=== PATIENT | male | born 1975 | race Caucasian/White ===

== ENCOUNTER 2020-11-07 08:08 | Emergency (ER) | payer BC ==
[2020-11-07 08:13] VITALS: RESP 18; TEMP 97.8
[2020-11-07] MEDS ORDERED: KETOROLAC 15 MG/ML 1 ML VIAL IVP STA (08:21)
[2020-11-07] MEDS ORDERED: DIAZEPAM 5 MG/ML 2 ML INJ IVP STA ×2 (08:21→09:59)
[2020-11-07] MEDS ORDERED: LIDOCAINE 5% PATCH TOPICAL STA (08:22)
--- NOTE | 2020-11-07 08:29 | ED ---
General Adult HPI - General Chief complaint: Back Pain/Injury Stated complaint: back pain Time Seen by Provider: 11/07/20 08:10 Source: patient, RN notes reviewed, old records reviewed Mode of arrival: ambulatory Limitations: physical limitation - History of Present Illness Initial comments: This is a 45-year-old male who presents emergency Department complaining of lower back pain. Patient states she was stretching on Thursday morning when he hurt his lower back he states he was on the right side but now it's on both sides. Patient denies any radiation of pain. Patient does any numbness or weakness per patient denies any urinary retention or incontinence. Patient states he has done this in the past as well per patient states he saw his [facility] doctor on Thursday he was given tramadol Flexeril and prednisone. Patient states he is no better. Patient denies any other complaints at this time. - Related Data Home Medications Medication Instructions Recorded Confirmed Cyclobenzaprine [Flexeril] 10 mg PO BID PRN 11/07/20 11/07/20 predniSONE [Deltasone] 40 mg PO BID 11/07/20 11/07/20 traMADol HCL [Ultram] 50 mg PO BID PRN 11/07/20 11/07/20 Previous Rx's Medication Instructions Recorded Ketorolac [Toradol] 10 mg PO Q6HR #15 tab 11/07/20 Lidocaine 5% Patch [Lidoderm 5% 2 patch TOPICAL DAILY #10 patch 11/07/20 Patch] Orphenadrine [Norflex] 100 mg PO Q12H #20 tab 11/07/20 Allergies Allergy/AdvReac Type Severity Reaction Status Date / Time No Known Allergies Allergy Verified 11/07/20 08:43 Review of Systems ROS Statement: Those systems with pertinent positive or pertinent negative responses have been documented in the HPI. ROS Other: All systems not noted in ROS Statement are negative. 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 History of Any Multi-Drug Resistant Organisms: None Reported Past Surgical History: Adenoidectomy, Tonsillectomy Past Anesthesia/Blood Transfusion Reactions: No Reported Reaction Past Psychological History: No Psychological Hx Reported Smoking Status: Never smoker Past Alcohol Use History: Occasional Past Drug Use History: None Reported - Past Family History Mother Additional Family Medical History / Comment(s): MOTHER-BRAIN TUMOR, BOTHER ANUERYSMS, AND STRONG FAMILY HX OF FACTOR LEIDEN PT THOUGHT IT TO BT THE HOMOZYGOUS TYPE General Exam - General Exam Comments Initial Comments: GENERAL: Patient is well-developed and well-nourished. Patient is nontoxic and well- hydrated and is in mild distress. ENT: Neck is soft and supple. No significant lymphadenopathy is noted. Oropharynx is clear. Moist mucous membranes. Neck has full range of motion without eliciting any pain. EYES: The sclera were anicteric and conjunctiva were pink and moist. Extraocular movements were intact and pupils were equal round and reactive to light. Eyelids were unremarkable. SKIN: Skin is clear with no lesions or rashes and otherwise unremarkable. NEUROLOGIC: Patient is alert and oriented x3. Cranial nerves II through XII are grossly intact. Motor and sensory are also intact. Normal speech, volume and content. Symmetrical smile. Straight leg test is negative bilaterally. Perineum exam has normal sensation. MUSCULOSKELETAL: Normal extremities with adequate strength and full range of motion. Patient has tenderness bilateral lower back in the paraspinous muscles tenderness. LYMPHATICS: No significant lymphadenopathy is noted PSYCHIATRIC: Normal psychiatric evaluation. Limitations: physical limitation Course Vital Signs 11/07/20 11/07/20 08:09 09:13 Temperature 97.8 F Pulse Rate 79 76 Respiratory 18 18 Rate Blood Pressure 141/87 162/92 O2 Sat by Pulse 98 99 Oximetry Medical Decision Making - Medical Decision Making Patient received Valium and Toradol emergency department. The sacral spine shows no acute abnormality. Disposition Clinical Impression: Strain of lumbar region Disposition: HOME SELF-CARE Condition: Good Instructions (If sedation given, give patient instructions): Low Back Strain (ED), Lower Back Exercises (ED) Additional Instructions: Patient should stop taking Flexeril stopped taking prednisone and continue taking tramadol as prescribed Prescriptions: Lidocaine 5% Patch [Lidoderm 5% Patch] 2 patch TOPICAL DAILY #10 patch Orphenadrine [Norflex] 100 mg PO Q12H #20 tab Ketorolac [Toradol] 10 mg PO Q6HR #15 tab Is patient prescribed a controlled substance at d/c from ED?: No Referrals: Robert Shell MD [Primary Care Provider] - 1-2 days Time of Disposition: 10:01
--- NOTE | 2020-11-07 09:52 | XR ---
EXAMINATION TYPE: XR lumbosacral spine min 4V DATE OF EXAM: 11/07/2020 COMPARISON: None HISTORY: Back pain and spasm TECHNIQUE: 5 view lumbar spine FINDINGS: There 5 lumbar-type vertebral bodies. Pedicles are intact. Disc heights are preserved. Vert ebral body heights are preserved. Alignment is normal. Facets appear normal. No spondylolytic defects are evident. IMPRESSION: 1. No acute osseous abnormality lumbar spine
[2020-11-07 10:26] VITALS: BP 126/74; PULSE 78
== END 2020-11-07 10:23 | disposition home or self-care (01) ==
LOC: EC 08:08
DX: S39.012A Strain of muscle, fascia and tendon of lower back, initial encounter (principal); X50.9XXA Other and unspecified overexertion or strenuous movements or postures, initial encounter
CPT/HCPCS: 72110; 99283; 96374; 96375; 96376; J3360; J1885

== ENCOUNTER 2020-11-08 19:59 | Emergency (ER) | payer BC ==
[2020-11-08 21:28] VITALS: RESP 18; TEMP 98.4
[2020-11-08] MEDS ORDERED: diphenhydrAMINE 50 MG/ML 1 ML VIAL IM STA (23:11)
[2020-11-08] MEDS ORDERED: HYDROmorphone 1 MG/ML 1 ML SYRINGE IM STA (23:11)
[2020-11-08] MEDS ORDERED: DIAZEPAM 5 MG/ML 2 ML INJ IM ONE (23:11)
[2020-11-09] MEDS ORDERED: HYDROmorphone 1 MG/ML 1 ML SYRINGE IM STA (00:56)
--- NOTE | 2020-11-09 00:58 | ED ---
Back Pain HPI - General Chief Complaint: Back Pain/Injury Stated Complaint: Back Pain Time Seen by Provider: 11/08/20 22:25 Source: patient - History of Present Illness Initial Comments: 45 year-old male patient presents to the emergency department for evaluation of lower back pain. Patient states that he was stretching 5 days ago, bending forward when his back spasmed. States it was over the left lower back. He did see his physician on Thursday and was diagnosed with spasm. Patient states that his pain spread and he got worse so he was seen in the ED yesterday. He was given toradol, norflex, ultram, and lidoderm patches. Patient states that since yesterday the tightness has spread to his hips and down the front of his thighs to his knees. He denies any numbness or tingling. Denies saddle anesthesia or loss of bowel or bladder control. Denies abdominal pain, nausea, vomiting, or diarrhea. Denies fever or chills. Denies history of similar back pain. Denies any fall or impact to the back. - Related Data Home Medications Medication Instructions Recorded Confirmed Cyclobenzaprine [Flexeril] 10 mg PO BID PRN 11/07/20 11/07/20 predniSONE [Deltasone] 40 mg PO BID 11/07/20 11/07/20 traMADol HCL [Ultram] 50 mg PO BID PRN 11/07/20 11/07/20 Previous Rx's Medication Instructions Recorded Ketorolac [Toradol] 10 mg PO Q6HR #15 tab 11/07/20 Lidocaine 5% Patch [Lidoderm 5% 2 patch TOPICAL DAILY #10 patch 11/07/20 Patch] Orphenadrine [Norflex] 100 mg PO Q12H #20 tab 11/07/20 Diazepam [Valium] 5 mg PO TID PRN 3 Days #9 tab 11/09/20 HYDROcodone/APAP 7.5-325MG [[place] 1 tab PO Q6HR PRN 3 Days #12 tab 11/09/20 7.5-325] Allergies Allergy/AdvReac Type Severity Reaction Status Date / Time No Known Allergies Allergy Verified 11/08/20 21:28 Review of Systems ROS Statement: Those systems with pertinent positive or pertinent negative responses have been documented in the HPI. ROS Other: All systems not noted in ROS Statement are negative. 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 History of Any Multi-Drug Resistant Organisms: None Reported Past Surgical History: Adenoidectomy, Tonsillectomy Past Anesthesia/Blood Transfusion Reactions: No Reported Reaction Past Psychological History: No Psychological Hx Reported Smoking Status: Never smoker Past Alcohol Use History: Occasional Past Drug Use History: None Reported - Past Family History Mother Additional Family Medical History / Comment(s): MOTHER-BRAIN TUMOR, BOTHER ANUERYSMS, AND STRONG FAMILY HX OF FACTOR LEIDEN PT THOUGHT IT TO BT THE HOMOZYGOUS TYPE General Exam General appearance: alert, in no apparent distress, other (This is a well- developed, well-nourished adult male patient in no acute distress. Vital signs upon presentation are temperature 98.4F, pulse 70, respirations 18, blood pressure 156/80, pulse ox 99% on room air.) Eye exam: Present: normal appearance, PERRL, EOMI. Absent: scleral icterus, conjunctival injection, periorbital swelling ENT exam: Present: normal exam, normal oropharynx, mucous membranes moist Respiratory exam: Present: normal lung sounds bilaterally. Absent: respiratory distress, wheezes, rales, rhonchi, stridor Cardiovascular Exam: Present: regular rate, normal rhythm, normal heart sounds. Absent: systolic murmur, diastolic murmur, rubs, gallop, clicks GI/Abdominal exam: Present: soft, normal bowel sounds. Absent: distended, tenderness, guarding, rebound, rigid Extremities exam: Present: normal inspection, full ROM, normal capillary refill, other (Skin to the lower extremities is pink, warm, dry. Cap refill less than 3 seconds. Pedal and posttibial pulses 2+.). Absent: tenderness, pedal edema, joint swelling, calf tenderness Back exam: Present: normal inspection, muscle spasm (Left paraspinal muscle spasm, left lower back muscle spasm), vertebral tenderness Neurological exam: Present: alert, oriented X3, CN II-XII intact Psychiatric exam: Present: normal affect, normal mood Skin exam: Present: warm, dry, intact, normal color. Absent: rash Course Vital Signs 11/08/20 11/09/20 21:25 01:17 Temperature 98.4 F Pulse Rate 70 65 Respiratory 18 18 Rate Blood Pressure 156/80 120/90 O2 Sat by Pulse 99 98 Oximetry Medical Decision Making - Medical Decision Making 45-year-old male patient presented to the emergency department today for evaluation of worsening back pain. Physical examination did reveal muscle spasm to the left paraspinal region and left low back. He is neurologically and neurovascularly intact. No concerning symptoms for cauda equina. Vital signs are unremarkable. Patient was given IM doses of Dilaudid and Valium here in the department. Upon reevaluation states his symptoms are somewhat improved. He'll be given additional dose of Dilaudid discharged home with prescription for [place] and Valium. He is instructed to follow up his primary care physician for recheck tomorrow, urged to discuss possible physical therapy referral. Return parameters were discussed in detail. He verbalizes understanding and agrees with this plan. My attending is Dr. Bess. Disposition Clinical Impression: Muscle spasm of back Disposition: HOME SELF-CARE Condition: Good Instructions (If sedation given, give patient instructions): Acute Low Back Pain (ED), Muscle Spasm (ED) Additional Instructions: Apply warm moist heat to the low back. Gentle range of motion. Avoid prolonged lying down, sitting, or standing. Take medications as directed. Follow up with her primary care physician for recheck in 1-2 days. Return to the emergency department immediately for any new, worsening, or concerning symptoms. Prescriptions: HYDROcodone/APAP 7.5-325MG [[place] 7.5-325] 1 tab PO Q6HR PRN 3 Days #12 tab PRN Reason: Pain Diazepam [Valium] 5 mg PO TID PRN 3 Days #9 tab PRN Reason: Muscle Spasm Is patient prescribed a controlled substance at d/c from ED?: No Referrals: Robert Shell MD [Primary Care Provider] - 1-2 days Time of Disposition: 00:58
[2020-11-09 01:18] VITALS: BP 120/90; PULSE 65
== END 2020-11-09 01:20 | disposition home or self-care (01) ==
LOC: EC 19:59
DX: M62.830 Muscle spasm of back (principal)
CPT/HCPCS: 99283; 96372 ×2; J1200; J3360; J1170